=== PATIENT | female | born 1955 | race Caucasian/White ===

== ENCOUNTER → 2016-07-16 | Outpatient (CLI) | payer MEDICARE, OTHER ==
[~2016-07-16] MED LIST: ALBUTEROL0.63 MG/3 INH; BRINTELLIX5 MG PO; CATAPRES 0.1MG0.1 MG PO; CHLORTHALIDONE25 MG PO; COMBIVENT0.074 GM/I INH; DDAVP0.2 MG PO; DIOVAN320 MG PO; FLONASE 0.05% N16 GM; HYDRALAZINE HCL50 MG PO; INCRUSE ELLI62.5 MCG INH; KLOR-CON M2020 MEQ PO; LASIX40 MG PO; LIBRIUM CAP 2525 MG PO; LIORESAL TAB 1010 MG PO; LIPITOR TAB 1010 MG PO; MULTIPLE VITAM1 EAC2 PO; NORVASC 5 MG TAB5 MG PO; PLAVIX 75 MG TA75 MG PO; TRANDATE 200 M200 MG PO; VICTOZA 3-0.6 MG/0.1 SQ
== END ==
DX: I50.22 Chronic systolic (congestive) heart failure (principal)

== ENCOUNTER → 2016-09-14 | Outpatient (CLI) | payer MEDICARE, OTHER | LOC: KOH-I 13:28 | DX: M25.561 Pain in right knee (principal); M25.551 Pain in right hip | CPT/HCPCS: 73502; 73562 ==

== ENCOUNTER 2020-05-27 16:45 | Inpatient (IN) | payer MEDICARE, OTHER ==
[~2020-05-27] VITALS: Ht 152.4 cm; Wt 118.8 kg
[~2020-05-27 16:45] MED LIST changes: +ASPIR-TRIN325 MG PO; +BREO ELLIPTA 11 EACH INH; +BRINTELLIX20 MG PO; +CLONIDINE HCL0.3 MG PO; +COMBIVENT RESPIM4 GM INH; +DDAVP0.1 MG PO; +ELAVIL 10 MG TA10 MG PO; +FLEXERIL 10 MG10 MG PO; +GLUCOPHAGE500 MG PO; +IBUPROFEN800 MG PO; +KEFLEX500 MG PO; +LEVEMIR100 UNIT/1 SQ; +MULTI-VITAMIN1 EACH PO; +NORCO 7.5-3251 EACH PO; +PRAMIPEXOLE0.125 MG PO; +PROTONIX40 MG PO; +TOPAMAX50 MG PO; +TYLENOL325 MG PO; +VICTOZA 1818 MG/3 ML SC; +VITAMIN C 500500 MG PO; +VOLTAREN100 GM TP
[2020-05-27 17:14] LABS: RED BLOOD COUNT 4.88 M/UL (4.00-5.10); WHITE BLOOD COUNT 11.8 K/UL (4.5-11.0)
[2020-05-27 17:35] LABS: BUN/CREATININE RATIO 28 (0-10)
[2020-05-27] MEDS ORDERED: HYDRALAZINE HCL50 MG PO (20:43)
[2020-05-27] MEDS ORDERED: FLONASE 0.05% N16 GM (20:44)
[2020-05-27] MEDS ORDERED: DICLOFONO2.5 GM TP (20:45)
[2020-05-27] MEDS ORDERED: NOVOLOG FL100 UNIT/1 INJ (20:46)
[2020-05-27] MEDS ORDERED: XYZAL5 MG PO (20:47)
[2020-05-28 04:00] LABS: RED BLOOD COUNT 4.5 M/UL (4.00-5.10)
[2020-05-28 04:24] LABS: BUN/CREATININE RATIO 29 (0-10)
[2020-05-29 09:54] LABS: HEMOGLOBIN 11.1 gm/dl (12.3-15.3); RED BLOOD COUNT 4.15 M/UL (4.00-5.10); WHITE BLOOD COUNT 9.7 K/UL (4.5-11.0)
[2020-05-29 10:15] LABS: BUN/CREATININE RATIO 41 (0-10)
[2020-05-30 02:52] LABS: HEMOGLOBIN 11.1 gm/dl (12.3-15.3); RED BLOOD COUNT 4.17 M/UL (4.00-5.10); WHITE BLOOD COUNT 9.7 K/UL (4.5-11.0)
[2020-05-30 03:14] LABS: BUN/CREATININE RATIO 40 (0-10)
[2020-05-31 02:36] LABS: HEMOGLOBIN 11.5 gm/dl (12.3-15.3); RED BLOOD COUNT 4.28 M/UL (4.00-5.10); WHITE BLOOD COUNT 9.1 K/UL (4.5-11.0)
[2020-05-31 03:30] LABS: BUN/CREATININE RATIO 33 (0-10)
[2020-05-31] MEDS ORDERED: HYDRALAZINE HCL50 MG PO (09:26)
[2020-05-31] MEDS ORDERED: DECADRON6 MG PO (09:32)
[2020-05-31] MEDS ORDERED: TESSALON PERLE100 MG PO (09:42)
[2020-06-01 03:45] LABS: HEMOGLOBIN 11.7 gm/dl (12.3-15.3); RED BLOOD COUNT 4.4 M/UL (4.00-5.10); WHITE BLOOD COUNT 8.6 K/UL (4.5-11.0)
[2020-06-01 04:16] LABS: BUN/CREATININE RATIO 41 (0-10)
[2020-06-01] MEDS ORDERED: CATAPRES 0.1MG0.1 MG PO (08:55)
[2020-06-01] MEDS ORDERED: HYDRALAZINE HCL50 MG PO (08:55)
== END 2020-06-01 10:47 | disposition home or self-care (01) | DRG 177 ==
LOC: ER1 16:45 → ZEROF 21:53 → CDU 21:53 → ZEROF 21:53 → PROG CARE 21:53 → CDU 05-28 08:18 → PROG CARE 05-28 13:25
PROVIDERS: Emergency Medicine; Internal Medicine; ADMIT Internal Medicine
PROC: 8E0ZXY6 Isolation (ICD-10-PCS; principal; 2020-05-27)
PROC: XW033E5 Introduction of Remdesivir Anti-infective into Peripheral Vein, Percutaneous Approach, New Technology Group 5 (ICD-10-PCS; 2020-05-27)
DX: U07.1 COVID-19 (principal); J12.82 Pneumonia due to coronavirus disease 2019; J96.21 Acute and chronic respiratory failure with hypoxia; Z68.43 Body mass index [BMI] 50.0-59.9, adult; E23.2 Diabetes insipidus; I50.32 Chronic diastolic (congestive) heart failure; E66.01 Morbid (severe) obesity due to excess calories; I48.91 Unspecified atrial fibrillation; J44.9 Chronic obstructive pulmonary disease, unspecified; E11.51 Type 2 diabetes mellitus with diabetic peripheral angiopathy without gangrene; I25.10 Atherosclerotic heart disease of native coronary artery without angina pectoris; I11.0 Hypertensive heart disease with heart failure; E78.5 Hyperlipidemia, unspecified; I27.20 Pulmonary hypertension, unspecified; I16.0 Hypertensive urgency; Z86.010 Personal history of colon polyps; Z90.710 Acquired absence of both cervix and uterus; Z82.49 Family history of ischemic heart disease and other diseases of the circulatory system; Z87.891 Personal history of nicotine dependence; Z83.3 Family history of diabetes mellitus; Z79.4 Long term (current) use of insulin; Z79.899 Other long term (current) drug therapy; G47.33 Obstructive sleep apnea (adult) (pediatric)
CPT/HCPCS: 36415; 70470; 71045; 80048; 80053; 82550; 82553; 82962; 83874; 83880; 84439; 84443; 84484; 85025; 85379; 86140; 93005; 94760; 96365; 96366; 96372; 96375; 99285; J0360; J0456; J1100; J1650; J7030; Q9963; U0002

== ENCOUNTER → 2020-07-31 | Outpatient (CLI) | payer MEDICARE, OTHER ==
[~2020-07-31] MED LIST changes: +DECADRON6 MG PO; +DICLOFONO2.5 GM TP; +NOVOLOG FL100 UNIT/1 INJ; +TESSALON PERLE100 MG PO; +XYZAL5 MG PO
== END ==
LOC: HEART 5 08:49
DX: R07.9 Chest pain, unspecified (principal); R06.02 Shortness of breath
CPT/HCPCS: 78452; 93306; A9502; J2785

== ENCOUNTER → 2020-09-02 | Outpatient (CLI) | payer MEDICARE, OTHER | LOC: HEART 5 15:45 | DX: J44.9 Chronic obstructive pulmonary disease, unspecified (principal); J30.9 Allergic rhinitis, unspecified; I72.9 Aneurysm of unspecified site | CPT/HCPCS: 94060; 94729 ==

== ENCOUNTER → 2021-08-19 | Outpatient (CLI) | payer MEDICARE, OTHER ==
[2021-08-19 14:20] LABS: HEMOGLOBIN 11.4 gm/dl (12.3-15.3); RED BLOOD COUNT 4.49 M/UL (4.00-5.10); WHITE BLOOD COUNT 8.2 K/UL (4.5-11.0)
[2021-08-19 15:30] LABS: BUN/CREATININE RATIO 20 (0-10)
[2021-08-20 10:14] LABS: CREATININE, URINE 50.5 mg/dL (Not Estab.)
[2021-08-21 16:14] LABS: CHOLESTEROL, TOTAL 137 mg/dL (100-199); HDL SIZE 8.8 nm (>=9.2); HDL-C 47 mg/dL (>39); HDL-P (TOTAL) 34.7 umol/L (>=30.5); LARGE HDL-P 3.6 umol/L (>=4.8); LARGE VLDL-P 2.6 nmol/L (<=2.7); LDL SIZE 20.2 nm (>20.5); LDL SIZE 20.2 nm (>=20.8); LDL-C 68 mg/dL (0-99); LDL-P 892 nmol/L (<1000); LP-IR SCORE 62 (<=45); SMALL LDL-P 486 nmol/L (<=527); TRIGLYCERIDES 123 mg/dL (0-149)
== END ==
LOC: LAB 13:22
PROVIDERS: Emergency Medicine
DX: I25.10 Atherosclerotic heart disease of native coronary artery without angina pectoris (principal); J96.11 Chronic respiratory failure with hypoxia; I10 Essential (primary) hypertension; F41.1 Generalized anxiety disorder; F33.1 Major depressive disorder, recurrent, moderate; E78.2 Mixed hyperlipidemia; E11.9 Type 2 diabetes mellitus without complications; E55.9 Vitamin D deficiency, unspecified
CPT/HCPCS: 36415; 80053; 80061; 82043; 82306; 82570; 83036; 83704; 84443; 84550; 85025